=== PATIENT | male | born 1975 | race African-American/Black ===

== ENCOUNTER 2024-01-08 10:22 | Emergency (ER) | payer MEDICAID ==
[~2024-01-08] VITALS: Ht 198.1 cm; Wt 213.2 kg
[2024-01-08 10:39] VITALS: BP_SYST 176; PULSE 98; RESP 16; TEMP 97.6; O2SAT 95
[2024-01-08 11:43] LABS: BILIRUBIN,URINE NEGATIVE (NEGATIVE); BLOOD, URINE 2+ (NEGATIVE); COLOR,URINE YELLOW (YELLOW); GLUCOSE,URINE NEGATIVE (NEGATIVE); KETONES,URINE NEGATIVE (NEGATIVE); LEUKOCYTE ESTERASE ,URINE NEGATIVE (NEGATIVE); NITRITE, URINE NEGATIVE (NEGATIVE); PROTEIN URINE 3+ (NEGATIVE); UROBILINOGEN,URINE 0.2 (0.2-1.0)
[2024-01-08 11:47] LABS: CLARITY/URINE SLIGHTLY HAZY (CLEAR)
[2024-01-08 12:21] LABS: BACTERIA,URINE FEW /HPF (None Seen); MUCUS,URINE 1+ /LPF (None Seen); WBC,URINE 0-3 /HPF (0-3)
[2024-01-08] MEDS ORDERED: FURO-150 PO (14:08)
[2024-01-08] MEDS ORDERED: CEPH-548 PO (14:08)
[2024-01-08 14:25] VITALS: BP_SYST 157; PULSE 96; RESP 16; TEMP 97.6; O2SAT 95
== END 2024-01-08 14:20 | disposition home or self-care (01) ==
LOC: SED 10:22
DX: N50.89 Other specified disorders of the male genital organs (principal); Z79.899 Other long term (current) drug therapy
CPT/HCPCS: 76870; 81000; 81001; 81015; 82948; 99284